=== PATIENT | female | born 1935 | race Caucasian/White ===

== ENCOUNTER 2024-10-21 08:40 | Day surgery (SDC) | payer MEDICARE ==
[2024-10-20 15:09] LABS: MEAN PLATELET VOLUME 7.4 FL (7.4-10.4); RED CELL DISTRIBUTION WIDTH 13.7 % (11.5-14.5)
[2024-10-20 15:18] LABS: APTT 26 SECONDS (22-32); INR 1.1 INR
[2024-10-20 15:21] LABS: CREATININE 0.99 MG/DL (0.40-0.90); TOTAL CARBON DIOXIDE 25.9 MMOL/L (24-32); eGFR 53 ML/MIN
[2024-10-21] VITALS (8 sets, daily range): BP systolic 140–163; BP diastolic 77–88; PULSE 54–67; RESP 12–15; TEMP 97.9; O2SAT 95
[~2024-10-21] VITALS: Ht 157.5 cm; Wt 54.6 kg
[~2024-10-21 08:40] MED LIST: ASPI-1265 PO; ATOR10TA70 PO; CALC600T98 PO; CHOL2000 PO; DILT-94 PO; FOLI1TAB27 PO; HYDR12.5 PO; MULT-620 PO; TIMO10DR29 EACHEYE; UBID100C16 PO; VITC500T PO
--- NOTE | 2024-10-21 09:07 | ELECTROCARDIOGRAPH REPORT ---
[facility] Test Date: 2024-10-21 Test Time: 09:03:05 Pat Name: ANABELA SHELTON Department[id number] Room: Gender: F Psych Np: FREDERICK : 1935 Requested By: AMBER CHANG Order Number: [id number] Reading MD: Dr. ROSA Chang Measurements Intervals [place] Rate: 65 P: 75 [place]: 132 QRS: -14 QRSD: 140 T: 101 QT: 448 QTc: 466 Interpretive Statements Sinus rhythm Probable left atrial enlargement Left bundle branch block Electronically Signed On 10-21-2024 17:26:[address] ROSA Chang Please click the below link to view image of tracing.
[2024-10-21] MEDS ORDERED: ALEN70TA37 PO (09:15)
[2024-10-21] MEDS ORDERED: ACET-2615 PO (09:15)
[2024-10-21] MEDS ORDERED: OLME20TA69 PO (09:15)
[2024-10-21] MEDS ORDERED: OMEG1CAP21 PO (09:15)
[2024-10-21] MEDS ORDERED: ESCI20TA39 PO (09:15)
[2024-10-21] MEDS ORDERED: LIDOcaine 1% (10mg/ml) 2ml vial ONE (11:25)
[2024-10-21] MEDS ORDERED: verapamil 2.5 mg/ml inj IV ONE (11:25)
[2024-10-21] MEDS ORDERED: fentaNYL/PF 50MCG/1 ML 2ML syringe ONE (11:26)
[2024-10-21] MEDS ORDERED: midazolam 1 mg/ML 2ml injection ONE ×2 (11:26→13:03)
[2024-10-21] MEDS ORDERED: heparin 1,000unit/ml 10ml vial 10 ML ONE (11:26)
[2024-10-21] MEDS ORDERED: nitroGLYCERIN 500mcg/5mL D5W 5 ML IV ONE ×3 (11:26→13:02)
[2024-10-21] MEDS ORDERED: iohexol 350 MG/ML 50ML vial IV ONE (11:26)
[2024-10-21] MEDS ORDERED: heparin 25,000 UNIT/250ml bag 250 ML IV ONE (12:32)
[2024-10-21] MEDS ORDERED: diltiazem 5mg/ml 5ml inj. IV ONE (12:43)
[2024-10-21] MEDS ORDERED: clopidogrel 300mg tablet ONE (12:57)
[2024-10-21] MEDS ORDERED: normal saline 1000ml 1,000 ML IV SCH (14:10)
[2024-10-21] MEDS ORDERED: HYDROcodone/acetaminophen 5mg/325mg tablet PO PRN (14:15)
[2024-10-21] MEDS ORDERED: HYDROcodone/acetaminophen 10/325mg tab PO PRN (14:15)
--- NOTE | 2024-10-21 14:18 | ELECTROCARDIOGRAPH REPORT ---
[facility] Test Date: 2024-10-21 Test Time: 14:17:40 Pat Name: ANABELA SHELTON Department: [facility] Patient ID: [id number] Room: Gender: F [employer]: FREDERICK : 1935 Requested By: AMBER CHANG Order Number: [id number] Reading MD: Dr. ROSA Chang Measurements Intervals [place] Rate: 55 P: 66 MA: 138 QRS: -39 QRSD: 145 T: 110 QT: 509 QTc: 487 Interpretive Statements Sinus rhythm Left bundle branch block Electronically Signed On 10-21-2024 17:26:[address] ROSA Chang Please click the below link to view image of tracing.
[2024-10-21] MEDS ORDERED: ASPI-500 PO (14:42)
[2024-10-21] MEDS ORDERED: CLOP-32 PO (14:42)
--- NOTE | 2024-10-22 06:31 | CARDIOLOGY REPORT ---
DATE OF SERVICE: 10/21/2024 DICTATING PHYSICIAN: ROSA Chang MD CARDIAC CATHETERIZATION GENDER: Female. AGE: 89 years. HEIGHT: 157 cm. WEIGHT: 153 kg. BODY SURFACE AREA: 1.44 m2. PRIMARY PHYSICIAN: Magali Degroot MD CLINICAL DOCUMENTATION DEVELOPER: ROSA Chang MD INDICATION: The patient is an 89-year-old postmenopausal female with hypertension, hyperlipidemia, MR, TR, pulmonary hypertension, exertional fatigue, and shortness of breath. Recommended myocardial perfusion scan, which showed anterolateral reversible defect. After discussing risks, benefits and alternative options, the patient prefers to proceed with definitive coronary angiography. Risks, benefits, and alternative options discussed. Informed consent obtained. The patient underwent left heart catheterization from right radial approach, 6-Icelandic right radial sheath. Post-procedure access site hemostasis secured with right atrial band. The patient tolerated the procedure well. COMPLICATIONS: None. PROCEDURES DONE: * Ultrasound-guided right radial artery visualization and access. * Left heart catheterization. * Left LVG. * Coronary cineangiography. * PTCA stenting of the proximal LAD. * PTCA stenting of the 100% occluded mid circumflex artery. * Conscious sedation time 90 minutes. HEMODYNAMICS: Aortic systolic 163, diastolic 81, mean 117 mmHg, LVEDP of 16 mmHg. There is no significant gradient across the aortic valve. LVG: Overall, left ventricular systolic function is about 65%. CORONARY CINEANGIOGRAPHY: Left main coronary artery is a large caliber vessel, engaged with JL4 catheter from right radial approach. . Left main coronary artery is a large caliber vessel with mild luminal irregularities. LAD is a medium caliber large transapical vessel arising at the bifurcation of left main coronary artery and has about 80% narrowing at the septal recreation program specialist branch, remainder of the LAD has mild luminal irregularities and diagonals are 1.75 mm caliber with mild luminal irregularities. Circumflex artery is 100% occluded in the mid portion. Right coronary artery is a large caliber, dominant vessel arising at right aortic sinus, courses through the right AV groove and ends at the posterior crux by dividing into the PDA and a posterolateral branch. There are collaterals seen from right to left opacities in circumflex artery. Mid right coronary artery has about 30% narrowing. PTCA STENTING OF THE PROXIMAL LAD: A 6-Icelandic LAD 4-guide without sidehole gave good support. Lesion crossed with PT2 moderate wire. Lesion angioplastied with 2.25/12 Trek balloon at 14 atmospheric pressure. Lesion stented with 3.5 x 18 Resolute [place] stent at 12 followed by 14 atmospheric pressures with post procedure 0% ALYSHA 3 flow. PTCA stenting of the 100% occluded mid circumflex artery. Same guide gave good support. Lesion crossed with PT2 moderate wire. We were able to cross the lesion and then two obtuse marginals were visible after partial recanalization. Lesion was angioplastied with a 2.2 x 12 Trek balloon at 8 followed by 10 atmospheric pressure. Lesion was stented with 2.5/15 Resolute [place] stent at 18 followed by 13 atmospheric pressure, post 0% ALYSHA 3 flow. The patient tolerated the procedure with no complication. IMPRESSION; An 89-year-old female with LV ejection fraction 65%. LVEDP of 16 mmHg with no significant gradient across the aortic valve. Left main normal. Approximately 80% narrowing, successfully angioplastied and stented with 3.5 Resolute [place] stent with about 20% narrowing distal to the stent. Mid circumflex artery 100% occluded, successfully recanalized and stented with 2.5/15 Resolute [place]ay with 0% ALYSHA 3 flow. Dominant RCA with mid 30% narrowing. RECOMMENDATIONS; Continue aggressive coronary risk factor modification, namely low-fat, low-cholesterol diet, maintaining ideal body weight. Hemoglobin A1c less than 7 g per Regular exercise program. ROSA Chang MD TID: [id number] RECEIPT: [id number] DERRICK/HERMAN/GAIL cc: Magali Degroot MD [facility]
== END 2024-10-21 20:15 | disposition home or self-care (01) ==
LOC: SSTAY O 08:40
PROVIDERS: ATTEND Internal Medicine Cardiovascular Disease
DX: R94.39 Abnormal result of other cardiovascular function study (principal); I25.10 Atherosclerotic heart disease of native coronary artery without angina pectoris; E78.5 Hyperlipidemia, unspecified; I10 Essential (primary) hypertension; I27.20 Pulmonary hypertension, unspecified; I44.7 Left bundle-branch block, unspecified; Z98.41 Cataract extraction status, right eye; Z98.42 Cataract extraction status, left eye; I27.29 Other secondary pulmonary hypertension; Z79.899 Other long term (current) drug therapy; Z79.01 Long term (current) use of anticoagulants; Z98.890 Other specified postprocedural states; Z88.1 Allergy status to other antibiotic agents
CPT/HCPCS: 36415; 80048; 85025; 85347; 85610; 85730; 93005; 93458; 99152; 99153; A6258; A6402; C1725; C1751; C1769; C1874; C1894; C9600; J1644; J2003; J2250; J3010; J3490; J7030; Q0163; Q9967; Z7610; A6449; C9601